=== PATIENT | female | born 1985 | race Caucasian/White ===

== ENCOUNTER 2022-02-24 13:26 | Emergency (ER) | payer MEDICAID, OTHER ==
[~2022-02-24] VITALS: Ht 175.3 cm; Wt 91.4 kg
[2022-02-24 13:40] VITALS: BP 139/91
[2022-02-24] MEDS ORDERED: CLIN150C2 PO (14:07)
[2022-02-24] MEDS ORDERED: NAPR-56 PO (14:07)
== END 2022-02-24 14:19 | disposition home or self-care (01) ==
LOC: ER 13:27
DX: K08.89 Other specified disorders of teeth and supporting structures (principal); E16.2 Hypoglycemia, unspecified; F17.200 Nicotine dependence, unspecified, uncomplicated; F12.90 Cannabis use, unspecified, uncomplicated; Z88.0 Allergy status to penicillin; Z79.2 Long term (current) use of antibiotics; Z79.899 Other long term (current) drug therapy
CPT/HCPCS: 99283

== ENCOUNTER 2022-09-10 13:17 | Emergency (ER) | payer MEDICAID, OTHER ==
[~2022-09-10] VITALS: Ht 177.8 cm; Wt 88.2 kg
[2022-09-10 14:28] LABS: BASOPHILS % (AUTO) 0.3 % (0-1); EOSINOPHILS % (AUTO) 0.1 % (0-6); HEMATOCRIT 50.9 % (35.0-45.0); HEMOGLOBIN 17.3 g/dl (12.0-16.0); LYMPHOCYTES # (AUTO) 1.7 X10'3 (1.1-4.8); LYMPHOCYTES % (AUTO) 11.3 % (21-51); MEAN CORPUSCULAR HEMOGLOBIN 31.3 PG (27.0-31.0); MEAN CORPUSCULAR VOLUME 92.1 FL (78-98); MEAN PLATELET VOLUME 8.9 FL (7.4-10.4); MONOCYTES # (AUTO) 1.2 X10'3 (0-0.9); MONOCYTES % (AUTO) 7.7 % (2-12); NEUTROPHILS # (AUTO) 12.1 X10'3 (1.8-7.7); NEUTROPHILS % (AUTO) 80.6 % (42-75); PLATELET COUNT 235 X10'3 (140-440); RED BLOOD COUNT 5.53 X10'6 (4.20-5.60); RED CELL DISTRIBUTION WIDTH 13.6 % (11.5-14.5)
[2022-09-10 14:46] LABS: ALANINE AMINOTRANSFERASE 24 U/L (12-78); ALBUMIN 3.9 G/DL (3.4-5.0); ALBUMIN/GLOBULIN RATIO 0.9 (1.1-1.5); ALKALINE PHOSPHATASE 85 IU/L (46-116); ANION GAP 16 (8-16); ASPARTATE AMINO TRANSFERASE 25 U/L (10-37); BILIRUBIN,TOTAL 0.3 MG/DL (0.1-1.0); BLOOD UREA NITROGEN 26 MG/DL (7-18); BUN/CREATININE RATIO 28.9 (6.6-38.0); CALCIUM 9.1 MG/DL (8.5-10.1); CHLORIDE 96 MMOL/L (99-107); GLUCOSE 104 MG/DL (70-104); LIPASE 154 U/L (73-393); POTASSIUM 3.5 MMOL/L (3.5-5.1); SODIUM 136 MMOL/L (135-145); TOTAL CARBON DIOXIDE 23.9 MMOL/L (24-32); TOTAL PROTEIN 8.3 G/DL (6.4-8.2); eGFR 71 ML/MIN
[2022-09-10] MEDS ORDERED: normal saline 1000ml 1,000 ML IV ONE (15:35)
[2022-09-10] MEDS ORDERED: dicyclomine 10 MG capsule PO ONE (15:35)
[2022-09-10] MEDS ORDERED: ondansetron/PF 4mg/2ml inj IV ONE (15:35)
[2022-09-10] MEDS ORDERED: morphine 2 MG/ML inj. syringe IV PRN (15:35)
[2022-09-10] MEDS ORDERED: normal saline 1000ML IV soln IVB ONE (15:35)
[2022-09-10 16:13] LABS: C-REACTIVE PROTEIN 8.69 MG/DL (0.0-0.5); MAGNESIUM 2.2 MG/DL (1.5-2.4)
[2022-09-10 18:00] LABS: URINE HCG NEGATIVE (NEG)
[2022-09-10 18:01] LABS: CLARITY,URINE SLIGHTLY CLOUDY (Clear); COLOR,URINE YELLOW (Yellow); GLUCOSE, URINE NEGATIVE (Neg); KETONES,URINE 40 mg/dl (Neg); LEUKOCYTE ESTERASE ,URINE MODERATE (Neg); NITRITES, URINE NEGATIVE (Neg); OCCULT BLOOD,URINE TRACE-INTACT (Neg); PH,URINE 6.5 (4.8-8.0); PROTEIN,URINE NEGATIVE (Neg); UROBILINOGEN,URINE 0.2 E.U/dL (0.2-1.0)
[2022-09-10 18:02] LABS: UA COLLECTION TYPE CLN CATCH MIDSTREAM
[2022-09-10 18:10] LABS: BACTERIA,URINE 3+ /HPF (Neg); MUCUS STRANDS FEW /LPF (Neg); RBC,URINE 0-2 /HPF (0-2); SQUAMOUS EPITHELIAL CELL,UR MANY /LPF (FEW); WBC,URINE 0-4 /HPF (0-4)
[2022-09-10] MEDS ORDERED: DICY10CA88 PO (18:38)
[2022-09-10] MEDS ORDERED: ONDA4TAB12 PO (18:38)
[2022-09-10 19:24] VITALS: BP 125/80
== END 2022-09-10 19:26 | disposition home or self-care (01) ==
LOC: ER 13:17
DX: J10.1 Influenza due to other identified influenza virus with other respiratory manifestations (principal); R11.2 Nausea with vomiting, unspecified; R53.83 Other fatigue; R09.89 Other specified symptoms and signs involving the circulatory and respiratory systems; Z88.0 Allergy status to penicillin; Z79.899 Other long term (current) drug therapy
CPT/HCPCS: 36415; 71045; 80053; 81001; 81025; 83605; 83690; 83735; 84145; 85025; 86140; 87040; 87502; 87503; 96361; 96374; 99284; J2405; J7030